=== PATIENT | male | born 1965 | race African-American/Black ===

== ENCOUNTER 2016-05-25 10:16 | Inpatient (IN) | payer OTHER ==
[2016-05-25 11:18] VITALS: BMI 22.6
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
[2016-05-25] MEDS ORDERED: chlordiazePOXIDE HCL 25 MG CAPSULE PO PRN (13:36)
[2016-05-25] MEDS ORDERED: guaiFENesin/D-METHORPHAN HB 10 ML UNIT-DOSE CUPS PO PRN (13:36)
[2016-05-25] MEDS ORDERED: MAGNESIUM HYDROX 2400MG/30ML ORAL SUSPENSION 30 ML CUP PO PRN (13:36)
[2016-05-25] MEDS ORDERED: MAGNESIUM CITRATE 300 ML BOTTLE PO PRN (13:36)
[2016-05-25] MEDS ORDERED: MAG HYDROX/AL HYDROX/SIMETH 30 ML UNIT-DOSE CUP PO PRN (13:36)
[2016-05-25] MEDS ORDERED: LOPERAMIDE HCL 2 MG CAPSULE PO PRN (13:36)
[2016-05-25] MEDS ORDERED: hydrOXYzine PAMOATE 50 MG CAPSULE (FP) PO PRN (13:36)
[2016-05-25] MEDS ORDERED: MENTHOL/PHENOL 1 EACH UD MM PRN (13:36)
[2016-05-25] MEDS ORDERED: ACETAMINOPHEN 325 MG TABLET (FP) PO PRN (13:36)
[2016-05-25] MEDS ORDERED: P-EPHED 60MG/TRIPROLIDI 2.5MG TABLET PO PRN (13:36)
[2016-05-25] MEDS ORDERED: IBUPROFEN 400 MG TABLET (FP) PO PRN (13:36)
[2016-05-25] MEDS ORDERED: chlordiazePOXIDE HCL 25 MG CAPSULE PO ONE (14:26)
[2016-05-25] MEDS: chlordiazePOXIDE HCL 25 MG CAPSULE PO SCH ×2 (17:25→22:44)
[2016-05-25] MEDS: diphenhydrAMINE HCL 50 MG CAPSULE PO PRN (22:44)
[2016-05-25] MEDS: THIAMINE HCL 100 MG TABLET (FP) PO SCH (22:44)
[2016-05-26] MEDS: chlordiazePOXIDE HCL 25 MG CAPSULE PO SCH ×4 (05:59→22:17)
[2016-05-26 10:11] LABS: MCH 31.7 pg (25.7-33.7); MCHC 33.3 g/dl (32.0-35.9); MEAN CELL VOLUME 95.2 fl (80-96); MEAN PLT VOLUME 8.9 fl (7.5-11.1); PLATELET COUNT 159 K/MM3 (134-434); RDW 14.4 % (11.9-15.9); WHITE BLOOD COUNT 3.1 K/mm3 (4.0-10.0)
[2016-05-26] MEDS: BACITRACIN 0.9 GM PACKET TP SCH ×2 (10:16→22:17)
[2016-05-26] MEDS: PRENATAL VITAMINS W/ FOLIC ACID TABLET (FP) PO SCH (10:16)
[2016-05-26] MEDS: NICOTINE 7 MG/24 HOURS TOPICAL PATCH TD SCH (10:16)
[2016-05-26 10:43] LABS: ALBUMIN 4.1 g/dl (3.4-5.0); ALK PHOS 79 U/L (45-117); ANION GAP 11 (8-16); BILIRUBIN,TOTAL 0.5 mg/dL (0.2-1.0); CALCIUM 8.8 mg/dL (8.5-10.1); CO2 27 mmol/L (21-32); CREATININE 0.7 mg/dL (0.7-1.3); GLUCOSE,RANDOM 87 mg/dL (74-106); SGOT/AST 47 U/L (15-37); SGPT/ALT 43 U/L (12-78); TOT PROT 7.9 g/dl (6.4-8.2)
[2016-05-26 11:25] LABS: HIV 1 & 2 AB NEGATIVE; HIV 1 AGp24 NEGATIVE
--- NOTE | 2016-05-26 12:23 | EKG ---
Test Reason : Blood Pressure : / mmHG Vent. Rate : 078 BPM Atrial Rate : 078 BPM P-R Int : 140 ms QRS Dur : 108 ms QT Int : 382 ms P-R-T Axes : 061 004 048 degrees QTc Int : 435 ms NORMAL SINUS RHYTHM NORMAL ECG NO PREVIOUS ECGS AVAILABLE Confirmed by SALLIE SOMERS MD ([id number]) on 05/26/2016 12:23:35 PM Referred By: Confirmed By:SALLIE SOMERS MD
--- NOTE | 2016-05-26 12:28 | PN ---
S CIWA - CIWA Score Nausea/Vomitin-No Nausea/No Vomiting Muscle Tremors: 4-Moderate,w/Arms Extend Anxiety: 3 Agitation: 4-Moderately Restless Paroxysmal Sweats: 3 Orientation: 0-Oriented Tacttile Disturbances: 0-None Auditory Disturbances: 0-None Visual Disturbances: 0-None Headache: 0-None Present CIWA-Ar Total Score: 14 BHS Progress Note (SOAP) Subjective: anxiety,tremors,sweating,interrupted sleep,restless Objective: 05/26/16 12:27 Vital Signs - 8 hr 05/26/16 05/26/16 05/26/16 06:52 09:56 10:16 Temperature 95.9 F L 96.5 F L 96.5 F L Pulse Rate 69 78 78 Respiratory 18 18 18 Rate Blood Pressure 124/75 128/82 128/82 Laboratory Tests 05/25/16 05/26/16 05/26/16 07:00 06:00 06:00 WBC 3.1 L RBC 3.92 L Hgb 12.4 Hct 37.3 MCV 95.2 MCHC 33.3 RDW 14.4 Plt Count 159 MPV 8.9 Sodium 140 Potassium 4.4 Chloride 102 Carbon Dioxide 27 Anion Gap 11 BUN 11 Creatinine 0.7 Creat Clearance w eGFR > 60 Random Glucose 87 Calcium 8.8 Total Bilirubin 0.5 AST 47 H ALT 43 Alkaline Phosphatase 79 Total Protein 7.9 Albumin 4.1 RPR Titer HIV 1&2 Antibody Screen Negative HIV P24 Antigen Negative 05/26/16 06:00 WBC RBC Hgb Hct MCV MCHC RDW Plt Count MPV Sodium Potassium Chloride Carbon Dioxide Anion Gap BUN Creatinine Creat Clearance w eGFR Random Glucose Calcium Total Bilirubin AST ALT Alkaline Phosphatase Total Protein Albumin RPR Titer Nonreactive HIV 1&2 Antibody Screen HIV P24 Antigen labs noted Assessment: 05/26/16 12:27 withdrawal sx. Plan: continue detox
[2016-05-26] MEDS: THIAMINE HCL 100 MG TABLET (FP) PO SCH (22:18)
[2016-05-27] MEDS: chlordiazePOXIDE HCL 25 MG CAPSULE PO SCH ×2 (05:37→10:17)
[2016-05-27 10:08] LABS: URINE APPEARANCE CLEAR; URINE BILIRUBIN NEGATIVE (NEGATIVE); URINE BLOOD NEGATIVE (NEGATIVE); URINE COLOR YELLOW; URINE GLUCOSE (UA) NEGATIVE (NEGATIVE); URINE KETONE NEGATIVE (NEGATIVE); URINE NITRITE NEGATIVE (NEGATIVE); URINE PROTEIN NEGATIVE (NEGATIVE); URINE UROBILINOGEN NEGATIVE E.U./dl (0.2-1.0)
[2016-05-27 10:13] LABS: URINE LEUK ESTERASE TRACE (NEGATIVE)
[2016-05-27] MEDS: PRENATAL VITAMINS W/ FOLIC ACID TABLET (FP) PO SCH (10:17)
[2016-05-27] MEDS: BACITRACIN 0.9 GM PACKET TP SCH ×2 (10:17→22:15)
[2016-05-27 10:20] LABS: URINE MUCUS FEW; URINE WBC 15 /hpf (3-5)
[2016-05-27] MEDS: NICOTINE 7 MG/24 HOURS TOPICAL PATCH TD SCH (12:02)
--- NOTE | 2016-05-27 12:45 | PN ---
S CIWA - CIWA Score Nausea/Vomitin-No Nausea/No Vomiting Muscle Tremors: 3 Anxiety: 4-Mod. Anxious/Guarded Agitation: 3 Paroxysmal Sweats: 3 Orientation: 0-Oriented Tacttile Disturbances: 0-None Auditory Disturbances: 0-None Visual Disturbances: 0-None Headache: 0-None Present CIWA-Ar Total Score: 13 BHS Progress Note (SOAP) Subjective: sweating,anxiety,tremors,interrupted sleep,restless Objective: 05/27/16 12:44 Vital Signs - 8 hr 05/27/16 05/27/16 06:40 09:55 Temperature 96.5 F L 95.6 F L Pulse Rate 69 84 Respiratory 18 20 Rate Blood Pressure 125/83 136/75 Laboratory Tests 05/25/16 05/26/16 05/26/16 07:00 06:00 06:00 WBC 3.1 L RBC 3.92 L Hgb 12.4 Hct 37.3 MCV 95.2 MCHC 33.3 RDW 14.4 Plt Count 159 MPV 8.9 Sodium 140 Potassium 4.4 Chloride 102 Carbon Dioxide 27 Anion Gap 11 BUN 11 Creatinine 0.7 Creat Clearance w eGFR > 60 Random Glucose 87 Calcium 8.8 Total Bilirubin 0.5 AST 47 H ALT 43 Alkaline Phosphatase 79 Total Protein 7.9 Albumin 4.1 Urine Color Urine Appearance Urine pH Ur Specific [place] Urine Protein Urine Glucose (UA) Urine Ketones Urine Blood Urine Nitrite Urine Bilirubin Urine Urobilinogen Ur Leukocyte Esterase Urine RBC Urine WBC Ur Epithelial Cells Urine Mucus RPR Titer HIV 1&2 Antibody Screen Negative HIV P24 Antigen Negative 05/26/16 05/27/16 06:00 08:00 WBC RBC Hgb Hct MCV MCHC RDW Plt Count MPV Sodium Potassium Chloride Carbon Dioxide Anion Gap BUN Creatinine Creat Clearance w eGFR Random Glucose Calcium Total Bilirubin AST ALT Alkaline Phosphatase Total Protein Albumin Urine Color Yellow Urine Appearance Clear Urine pH 5.0 Ur Specific [place] 1.021 Urine Protein Negative Urine Glucose (UA) Negative Urine Ketones Negative Urine Blood Negative Urine Nitrite Negative Urine Bilirubin Negative Urine Urobilinogen Negative Ur Leukocyte Esterase Trace H Urine RBC None Urine WBC 15 Ur Epithelial Cells Rare Urine Mucus Few RPR Titer Nonreactive HIV 1&2 Antibody Screen HIV P24 Antigen labs noted Assessment: 05/27/16 12:45 withdrawal sx. Plan: continue detox
[2016-05-27] MEDS: chlordiazePOXIDE 5 MG CAPSULE PO SCH ×2 (17:44→22:15)
[2016-05-27] MEDS: THIAMINE HCL 100 MG TABLET (FP) PO SCH (22:15)
[2016-05-27] MEDS: diphenhydrAMINE HCL 50 MG CAPSULE PO PRN (22:17)
[2016-05-28] MEDS: chlordiazePOXIDE 5 MG CAPSULE PO SCH ×2 (05:47→10:09)
[2016-05-28] MEDS: NICOTINE 7 MG/24 HOURS TOPICAL PATCH TD SCH (10:09)
[2016-05-28] MEDS: PRENATAL VITAMINS W/ FOLIC ACID TABLET (FP) PO SCH (10:09)
[2016-05-28] MEDS: BACITRACIN 0.9 GM PACKET TP SCH ×2 (10:09→22:10)
--- NOTE | 2016-05-28 11:02 | PN ---
BHS Progress Note (SOAP) Subjective: DECREASED ANXIETY,SWEATS,TREMORS. Objective: 05/28/16 11:01 Vital Signs Temperature 98.0 F 05/28/16 09:39 Pulse Rate 84 05/28/16 09:39 Respiratory Rate 18 05/28/16 09:39 Blood Pressure 124/75 05/28/16 09:39 O2 Sat by Pulse Oximetry (%) Assessment: 05/28/16 11:01 DECREASED WITHDRAWAL SX Plan: CONTINUE DETOX
[2016-05-28] MEDS: chlordiazePOXIDE HCL 10 MG CAPSULE PO SCH ×2 (17:32→22:10)
[2016-05-28] MEDS: THIAMINE HCL 100 MG TABLET (FP) PO SCH (22:10)
[2016-05-28] MEDS: diphenhydrAMINE HCL 50 MG CAPSULE PO PRN (22:10)
[2016-05-29] MEDS: chlordiazePOXIDE HCL 10 MG CAPSULE PO SCH (05:51)
[2016-05-29 06:27] VITALS: BP 126/80; PULSE 68; TEMP 96
--- NOTE | 2016-05-29 15:34 | DS ---
[facility] Detox Discharge Summary Admission Date: 05/25/16 Discharge Date: 05/29/16 - History Present History: Alcohol Dependence Additional Comments: ADVISED PT. TO FOLLOW-UP WITH [facility] / REHAB MEDICAL PROVIDER AFTER DISCHARGE FROM DETOX FOR GENERAL MEDICAL ASSESSMENT. - Physical Exam Results Vital Signs: Vital Signs Temperature 96 F L 05/29/16 06:27 Pulse Rate 68 05/29/16 06:27 Respiratory Rate 18 05/29/16 06:27 Blood Pressure 126/80 05/29/16 06:27 O2 Sat by Pulse Oximetry (%) Pertinent Admission Physical Exam Findings: WITHDRAWAL SYMPTOMS. Laboratory Last Values WBC 3.1 K/mm3 (4.0-10.0) L 05/26/16 06:00 RBC 3.92 M/mm3 (4.00-5.60) L 05/26/16 06:00 Hgb 12.4 GM/dL (11.7-16.9) 05/26/16 06:00 Hct 37.3 % (35.4-49) 05/26/16 06:00 MCV 95.2 fl (80-96) 05/26/16 06:00 MCHC 33.3 g/dl (32.0-35.9) 05/26/16 06:00 RDW 14.4 % (11.9-15.9) 05/26/16 06:00 Plt Count 159 K/MM3 (134-434) 05/26/16 06:00 MPV 8.9 fl (7.5-11.1) 05/26/16 06:00 Sodium 140 mmol/L (136-145) 05/26/16 06:00 Potassium 4.4 mmol/L (3.5-5.1) 05/26/16 06:00 Chloride 102 mmol/L (98-107) 05/26/16 06:00 Carbon Dioxide 27 mmol/L (21-32) 05/26/16 06:00 Anion Gap 11 (8-16) 05/26/16 06:00 BUN 11 mg/dL (7-18) 05/26/16 06:00 Creatinine 0.7 mg/dL (0.7-1.3) 05/26/16 06:00 Creat Clearance w eGFR > 60 (>60) 05/26/16 06:00 Random Glucose 87 mg/dL (74-106) 05/26/16 06:00 Calcium 8.8 mg/dL (8.5-10.1) 05/26/16 06:00 Total Bilirubin 0.5 mg/dL (0.2-1.0) 05/26/16 06:00 AST 47 U/L (15-37) H 05/26/16 06:00 ALT 43 U/L (12-78) 05/26/16 06:00 Alkaline Phosphatase 79 U/L (45-117) 05/26/16 06:00 Total Protein 7.9 g/dl (6.4-8.2) 05/26/16 06:00 Albumin 4.1 g/dl (3.4-5.0) 05/26/16 06:00 Urine Color Yellow 05/27/16 08:00 Urine Appearance Clear 05/27/16 08:00 Urine pH 5.0 (5.0-8.0) 05/27/16 08:00 Ur Specific [place] 1.021 (1.001-1.035) 05/27/16 08:00 Urine Protein Negative (NEGATIVE) 05/27/16 08:00 Urine Glucose (UA) Negative (NEGATIVE) 05/27/16 08:00 Urine Ketones Negative (NEGATIVE) 05/27/16 08:00 Urine Blood Negative (NEGATIVE) 05/27/16 08:00 Urine Nitrite Negative (NEGATIVE) 05/27/16 08:00 Urine Bilirubin Negative (NEGATIVE) 05/27/16 08:00 Urine Urobilinogen Negative E.U./dl (0.2-1.0) 05/27/16 08:00 Ur Leukocyte Esterase Trace (NEGATIVE) H 05/27/16 08:00 Urine RBC None /hpf (0-3) 05/27/16 08:00 Urine WBC 15 /hpf (3-5) 05/27/16 08:00 Ur Epithelial Cells Rare /hpf (FEW) 05/27/16 08:00 Urine Mucus Few 05/27/16 08:00 RPR Titer Nonreactive (NONREACTIVE) 05/26/16 06:00 HIV 1&2 Antibody Screen Negative 05/25/16 07:00 HIV P24 Antigen Negative 05/25/16 07:00 LABS NOTED. - Treatment Hospital Course: Detox Protocol Followed, Detoxed Safely, Responded well, Discharged Condition Good - Medication Discharge Medications: Ambulatory Orders NK [No Known Home Medication] 05/25/16 - Diagnosis (1) Alcohol dependence with uncomplicated withdrawal Status: Acute (2) Nicotine dependence Status: Chronic Qualifiers: Nicotine product type: cigarettes Substance use status: uncomplicated Qualified Code(s): F17.210 - Nicotine dependence, cigarettes, uncomplicated - AMA Did Patient Leave Against Medical Advice: No
== END 2016-05-29 09:08 | disposition home or self-care (01) | DRG 775 ==
LOC: YASAS 10:16 → Y3N 14:09
PROVIDERS: ADMIT Internal Medicine; ATTEND Internal Medicine
PROC: HZ2ZZZZ Detoxification Services for Substance Abuse Treatment (ICD-10-PCS; principal; 2016-05-29)
DX: F10.230 Alcohol dependence with withdrawal, uncomplicated (principal); F17.210 Nicotine dependence, cigarettes, uncomplicated
CPT/HCPCS: 36415; 80053; 81003; 81015; 85027; 86593; 87389; 93005; 93010